=== PATIENT | male | born 1970 | race Caucasian/White ===

== ENCOUNTER → 2016-07-08 | Outpatient (CLI) | payer OTHER | LOC: RAD 10:50 | PROVIDERS: ATTEND Internal Medicine | DX: C83.07 Small cell B-cell lymphoma, spleen (principal) | CPT/HCPCS: 78815; A9552 ==

== ENCOUNTER → 2016-07-20 | Outpatient (CLI) | payer OTHER | LOC: RAD 12:39 | PROVIDERS: ATTEND Internal Medicine | DX: E04.9 Nontoxic goiter, unspecified (principal) | CPT/HCPCS: 76536 ==